=== PATIENT | male | born 1960 ===

== ENCOUNTER 2023-12-18 12:08 | Emergency (ER) | payer SELFPAY ==
[~2023-12-18] VITALS: Ht 190.5 cm; Wt 90.9 kg
[2023-12-18 12:13] VITALS: BP 130/86; PULSE 82; RESP 18; TEMP 97.5; O2SAT 96
== END 2023-12-18 15:50 | disposition left against medical advice (07) ==
LOC: ER 12:09
DX: S00.80XD Unspecified superficial injury of other part of head, subsequent encounter (principal); Z48.02 Encounter for removal of sutures; X58.XXXD Exposure to other specified factors, subsequent encounter
CPT/HCPCS: 99281